=== PATIENT | male | born 1985 | race Caucasian/White ===

== ENCOUNTER 2017-11-21 16:50 | Emergency (ER) | payer BC ==
[2017-11-21 17:44] VITALS: RESP 18
[2017-11-21] MEDS ORDERED: Bacitracin 500 Units/gm Oint Foilpak UD TOP ONE (17:44)
[2017-11-21] MEDS ORDERED: Lidocaine 1%/Epinephrine 1:100000 30 ml vial IJ ONE (17:44)
[2017-11-21] MEDS ORDERED: Bacitracin 500 Units/gm Oint Foilpak UD ONE (17:51)
[2017-11-21] MEDS ORDERED: Lidocaine 2% w Epi 1:100,000 Inj IJ ONE (17:58)
--- NOTE | 2017-11-21 18:15 | RAD ---
PROCEDURE: Right Hand Radiographs. HISTORY: hand laceration, r/o foreign body COMPARISON: None available. FINDINGS: BONES: No acute displaced fracture. Well corticated deformity of the ulna styloid consistent with remote injury. JOINTS: No dislocation. SOFT TISSUES: Soft tissue irregularity consistent with laceration involving into web space between the 1st and 2nd digits. 1 mm punctate density noted at the level of the proximal 2nd phalanx laterally, possibly debris/foreign body. OTHER FINDINGS: None. IMPRESSION: Soft tissue irregularity consistent with laceration involving into web space between the 1st and 2nd digits. 1 mm punctate density noted at the level of the proximal 2nd phalanx laterally, possibly debris/foreign body. No acute displaced fracture or dislocation identified. If symptoms persist or if there is continued clinical concern, x-ray follow-up in 7-10 days should be considered.
--- NOTE | 2017-11-21 18:41 | C.PDOC ---
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 Patient states he was holding a glass and it broke. States Tetanus status is not UTD. Denies arm pain, weakness or numbness in the hand. 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 Skin: Positive for: Other ((+) Laceration to the right hand, base of 2nd finger) Neurological: Negative for: Weakness, Numbness Physical Exam - Physical Exam Appears: Non-toxic, No Acute Distress Skin: Warm, Dry, Other ((+) 2cm V shaped laceration to the right hand, base of lateral 2nd finger) Head: Atraumatic, Normacephalic Oral Mucosa: Moist Extremity: Normal ROM, No Tenderness, Capillary Refill (<2 secs), No Swelling Neurological/Psych: Oriented x3, Normal Speech, Normal Motor, Normal Sensation ED Course And Treatment O2 Sat by Pulse Oximetry: 98 - Other Rad X-Ray - Right Hand X-Ray: Viewed By Me, Read By Radiologist Interpretation: PROCEDURE: Right Hand Radiographs. HISTORY: hand laceration, r/o foreign body. COMPARISON: None available. FINDINGS: BONES: No acute displaced fracture. Well corticated deformity of the ulna styloid consistent with remote injury. JOINTS: No dislocation. SOFT TISSUES: Soft tissue irregularity consistent with laceration involving into web space between the 1st and 2nd digits. 1 mm punctate density noted at the level of the proximal 2nd phalanx laterally, possibly debris/foreign body. OTHER FINDINGS: None. IMPRESSION: Soft tissue irregularity consistent with laceration involving into web space between the 1st and 2nd digits. 1 mm punctate density noted at the level of the proximal 2nd phalanx laterally, possibly debris/foreign body. No acute displaced fracture or dislocation identified. If symptoms persist or if there is continued clinical concern, x-ray follow-up in 7-10 days should be considered. Laceration - Laceration Repair Right Hand, 2nd Finger Wound Length (In cm): 2 Description Of Wound: Irregular (V shaped) Wound Cleansed With: Betadine Anesthesia: Lidocaine 1%, With Epi Wound Examination: Irrigated With Saline, No FB With Wound Exploration, No Tendon Injury With Wound Exploration, Foreign Material Removed W/Irrigation Wound Closure: Suture (7) Suture Technique And Material Used: Running, Nylon (40-) Wound Complexity: Simple Medical Decision Making Medical Decision Making: PLAN: * X-Ray - Right Hand * Tetanus IM Disposition - Disposition Referrals: at [facility] [Outside] Disposition: HOME/ ROUTINE Disposition Time: 19:09 Condition: GOOD Additional Instructions: Keep the wound covered for 2 days. Wash the wound twice a day and apply bacitracin, There may still be a piece of the foreign body in the wound. Take antibiotics until completed. Sutures to be removed within 7-10 days. Return sooner if worsened. Prescriptions: Bacitracin Ointment [Bacitracin] 30 gm TOP BID #1 tube Cephalexin [cephalexin] 500 mg PO BID #14 cap Instructions: Laceration (ED) Forms: [facility] (Thai) - Clinical Impression Clinical Impression: Hand laceration - PA / TELECOMMUNICATOR / Resident Statement MD/DO has reviewed & agrees with the documentation as recorded. - Scribe Statement The provider has reviewed the documentation as recorded by the Scribe Minoo Gurrola All medical record entries made by the Elvinibdeb were at my direction and personally dictated by me. I have reviewed the chart and agree that the record accurately reflects my personal performance of the history, physical exam, medical decision making, and the department course for this patient. I have also personally directed, reviewed, and agree with the discharge instructions and disposition.
[2017-11-21 19:09] VITALS: BP 129/88; PULSE 77; TEMP 98.5
[2017-11-21 19:12] VITALS: O2SAT 98
== END 2017-11-21 19:19 | disposition home or self-care (01) ==
LOC: C.ER 16:50
DX: S61.411A Laceration without foreign body of right hand, initial encounter (principal); W25.XXXA Contact with sharp glass, initial encounter; Z23 Encounter for immunization